=== PATIENT | male | born 2000 | race Hispanic/Latino ===

== ENCOUNTER 2021-10-06 18:13 | Emergency (ER) | payer MEDICAID ==
[~2021-10-06] VITALS: Ht 152.4 cm; Wt 67.1 kg
[~2021-10-06 18:13] MED LIST: POLY17PO4 PO; SENN8.6T20 PO; zofran odt PO
[2021-10-06] MEDS ORDERED: 0.9%NACL 1000ML 1,000 ML IV ONE (19:30)
[2021-10-06] MEDS ORDERED: ONDANSETRON 4MG INJ IVP ONE (19:30)
[2021-10-06] MEDS ORDERED: FAMOTIDINE 20MG VIAL IV ONE (19:30)
[2021-10-06] MEDS ORDERED: KETOROLAC 15MG/ML VIAL (15MG/ML) IV ONE (19:30)
[2021-10-06 19:37] LABS: BASOPHILS % (AUTO) 0.5 % (0.0-5.0); EOSINOPHILS % (AUTO) 0.6 % (0.0-8.0); HEMATOCRIT 44.6 % (42-54); LYMPHOCYTES % (AUTO) 11.8 % (21.0-51.0); MEAN CORPUSCULAR HGB CONC 36.3 g/dL (32.0-36.0); MEAN CORPUSCULAR VOLUME 85.3 fL (79-99); MONOCYTES % (AUTO) 5.1 % (3.0-13.0); NEUTROPHILS % (AUTO) 81.7 % (40.0-77.0); PLATELET COUNT (AUTO) 211 K/uL (130-400); RED BLOOD CELL COUNT(AUTO) 5.23 MIL/uL (4.50-6.20); RED CELL DISTRIBUTION WIDTH 11.7 % (11.0-15.5); WHITE BLOOD COUNT (AUTO) 11.6 K/uL (4.8-10.8)
[2021-10-06 19:49] LABS: CREATININE 0.8 mg/dL (0.5-1.5); POTASSIUM 4.1 mmol/L (3.5-5.1)
[2021-10-06 19:53] LABS: ALBUMIN 4.6 g/dL (3.5-5.0); TOTAL PROTEIN, SERUM 7.6 g/dL (6.0-8.3)
[2021-10-06 20:38] LABS: BILIRUBIN,URINE NEGATIVE (NEGATIVE); COLOR,URINE YELLOW (YELLOW); GLUCOSE, URINE (UA) NEGATIVE (NEGATIVE); KETONES,URINE 40 mg/dL (NEGATIVE); LEUKOCYTE ESTERASE ,URINE NEGATIVE (NEGATIVE); NITRATE,URINE NEGATIVE (NEGATIVE); OCCULT BLOOD,URINE NEGATIVE (NEGATIVE); PROTEIN,URINE NEGATIVE (NEGATIVE); UROBILINOGEN,URINE 0.2 mg/dL (0.2-1.0)
[2021-10-06 20:44] LABS: APPEARANCE,URINE CLEAR (CLEAR)
[2021-10-06 20:54] VITALS: BP 111/62
[2021-10-06] MEDS ORDERED: IBUP-2070 PO (21:08)
[2021-10-06] MEDS ORDERED: ONDA4TAB10 PO (21:08)
== END 2021-10-06 21:29 | disposition home or self-care (01) ==
LOC: EDH 18:13
DX: B34.9 Viral infection, unspecified (principal); Z20.822 Contact with and (suspected) exposure to COVID-19; Z79.1 Long term (current) use of non-steroidal anti-inflammatories (NSAID); Z79.899 Other long term (current) drug therapy
CPT/HCPCS: 99284; 96374; 71045; 96375; 87635; 96361; 80053; 85025; 83690; 87880; 86308; 87804 ×2; 81003; 36415; C9803; J7030; J2405; J1885; S0028; J3490

== ENCOUNTER 2022-05-31 22:38 | Emergency (ER) | payer MEDICAID ==
[~2022-05-31] VITALS: Ht 167.6 cm; Wt 64.9 kg
[~2022-05-31 22:38] MED LIST changes: +IBUP-2070 PO; +ONDA4TAB10 PO
[2022-05-31] MEDS ORDERED: CIPR7.5D OT (23:38)
[2022-05-31 23:59] VITALS: BP 120/65
== END 2022-06-01 00:02 | disposition home or self-care (01) ==
LOC: EDH 22:38
DX: H61.22 Impacted cerumen, left ear (principal); H66.92 Otitis media, unspecified, left ear; H92.02 Otalgia, left ear; Z79.899 Other long term (current) drug therapy

== ENCOUNTER 2023-07-11 15:45 | Emergency (ER) | payer MEDICAID ==
[~2023-07-11] VITALS: Ht 167.6 cm; Wt 63.5 kg
[~2023-07-11 15:45] MED LIST changes: +CIPR7.5D OT
[2023-07-11 17:02] LABS: HEMATOCRIT 41.1 % (42-54); MEAN CORPUSCULAR HEMOGLOBIN 31.9 pg (27.0-33.0); MEAN CORPUSCULAR HGB CONC 36.3 g/dL (32.0-36.0); PLATELET COUNT (AUTO) 236 K/uL (130-400); RED BLOOD CELL COUNT(AUTO) 4.67 MIL/uL (4.50-6.20); RED CELL DISTRIBUTION WIDTH 12.5 % (11.0-15.5); WHITE BLOOD COUNT (AUTO) 6.7 K/uL (4.8-10.8)
[2023-07-11 17:05] LABS: BASOPHILS # (AUTO) 0.04 K/uL (0.00-0.20); BASOPHILS % (AUTO) 0.6 % (0.0-5.0); EOSINOPHILS # (AUTO) 0.11 K/uL (0.00-0.70); EOSINOPHILS % (AUTO) 1.7 % (0.0-8.0); IMMATURE GRANULOCYTE ABSOLUTE 0.01 K/uL (0-1); LYMPHOCYTES # (AUTO) 1.7 K/uL (1.0-4.8); LYMPHOCYTES % (AUTO) 25.7 % (21.0-51.0); MONOCYTES # (AUTO) 0.4 K/uL (0.1-1.0); MONOCYTES % (AUTO) 6.6 % (3.0-13.0); NEUTROPHILS # (AUTO) 4.2 K/uL (1.8-7.7); NEUTROPHILS % (AUTO) 65.2 % (40.0-77.0)
[2023-07-11 17:17] LABS: CREATININE 0.9 mg/dL (0.5-1.3); POTASSIUM 3.8 mmol/L (3.5-5.1)
[2023-07-11 17:21] LABS: ALBUMIN 4.2 g/dL (3.5-5.0); BILIRUBIN,TOTAL 0.5 mg/dL (0.2-1.0)
[2023-07-11 19:02] LABS: APPEARANCE,URINE CLEAR (CLEAR); BILIRUBIN,URINE NEGATIVE (NEGATIVE); COLOR,URINE COLORLESS (YELLOW); GLUCOSE, URINE (UA) NEGATIVE (NEGATIVE); KETONES,URINE NEGATIVE (NEGATIVE); LEUKOCYTE ESTERASE ,URINE NEGATIVE Leu/uL (NEGATIVE); NITRATE,URINE NEGATIVE (NEGATIVE); OCCULT BLOOD,URINE NEGATIVE (NEGATIVE); PROTEIN,URINE NEGATIVE (NEGATIVE); UROBILINOGEN,URINE 0.2 mg/dL (0.2-1.0)
[2023-07-11 19:03] LABS: ADD UA MICROSCOPIC YES
[2023-07-11 19:04] LABS: RBC,URINE 0-1 /HPF (0-1)
[2023-07-11 19:08] LABS: AMPHET/METH SCREEN,URINE NEGATIVE (NEGATIVE); BARBITURATE SCREEN, URINE NEGATIVE (NEGATIVE); BENZODIAZEPINES SCREEN,URINE NEGATIVE (NEGATIVE); CANNABINOID SCREEN,URINE NEGATIVE (NEGATIVE); COCAINE SCREEN,URINE NEGATIVE (NEGATIVE); OPIATE SCREEN,URINE NEGATIVE (NEGATIVE); PHENCYCLIDINE SCREEN,URINE NEGATIVE (NEGATIVE)
[2023-07-11] MEDS ORDERED: MECL-302 PO (19:57)
[2023-07-11 20:40] VITALS: BP 118/62; PULSE 65; RESP 18; O2SAT 99
== END 2023-07-11 20:42 | disposition home or self-care (01) ==
LOC: EDH 15:45
DX: R42 Dizziness and giddiness (principal); R07.81 Pleurodynia
CPT/HCPCS: 36415; 71045; 80053; 80305; 81001; 84484; 85025; 85651; 86140; 93005

== ENCOUNTER 2024-02-15 19:22 | Emergency (ER) | payer MEDICAID ==
[~2024-02-15] VITALS: Ht 167.6 cm; Wt 74.8 kg
[~2024-02-15 19:22] MED LIST changes: +MECL-302 PO; +ONDA-243 PO; -ONDA4TAB10 PO
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
[2024-02-15 19:34] VITALS: BP 115/74; PULSE 82; RESP 18; TEMP 98.5; O2SAT 98
--- NOTE | 2024-02-15 20:44 | HMCIMG ---
CT HEAD/BRAIN W/O CONTRAST CLINICAL HISTORY: PATIENT HAD A BRIEF EPISODE OF HEADACHE WITH A BLURRED VISION THIS AFTERNOON COMPARISON: None TECHNIQUE: Multiple sequential axial images of the head were obtained from the base of the skull through vertex. CT was performed with one or more of the following dose reduction techniques: automated exposure control, adjustment of the mA and/or kV according to patient size, or use of iterative reconstruction technique FINDINGS: There is a resolved right frontal lobe small infarct. This may represent gliosis prior contusion. The remainder of the brain parenchyma is unremarkable. No orbital contents and mastoid air cells are unremarkable. There is mild mucoperiosteal thickening and a small air-fluid level in the ethmoid air cells. The calvarium is intact. IMPRESSION: Mild acute and chronic ethmoid sinusitis. Resolved right frontal small infarct
== END 2024-02-15 21:03 | disposition home or self-care (01) ==
LOC: EDH 19:22
DX: J32.2 Chronic ethmoidal sinusitis (principal); Z79.899 Other long term (current) drug therapy
CPT/HCPCS: 70450; 99284